=== PATIENT | female | born 1945 | race Caucasian/White ===

== ENCOUNTER 2017-02-19 05:45 | Inpatient (IN) | payer MEDICARE ==
[2017-02-19] VITALS (17 sets, daily range): BP systolic 108–147; BP diastolic 60–78; PULSE 62–96; RESP 10–20; O2SAT 95–100
[~2017-02-19] VITALS: Ht 162.6 cm; Wt 64.6 kg
[2017-02-19] MEDS: Lactated Ringer's 1,000 ML IV SCH ×5 (05:00→19:33)
[~2017-02-19 05:45] MED LIST: CALC-696 PO; DIPH25CA6 PO; ESTR10TA VG; RALO60TA PO
[2017-02-19] MEDS ORDERED: CeFAZolin Inj 2 GM in IV Premix 1 EACH IV ONE (06:00)
--- NOTE | 2017-02-19 06:34 | HP PRE OP ---
[address] [address] PREOPERATIVE HISTORY AND PHYSICAL PATIENT: MARLENY HAILE : 1945 MR#: [id number] ADMIT: 02/19/2017 JOB ID: [id number] IDENTIFICATION: The patient is a 71-year-old, G3, P3, AB0 woman. CHIEF COMPLAINT: Genitourinary prolapse plus right adnexal mass, for surgical intervention. HISTORY OF PRESENT ILLNESS: This patient is menopausal and uses Vagifem 10 mcg vaginally twice weekly, also Evista every day. She has been found to have genitourinary prolapse, with significant vaginal, as well as uterine drop, with associated sensation of difficulty emptying the bladder well, although no difficulty emptying the rectum. She does not leak urine. She has requested definitive surgical intervention, i.e. removal of the uterus along with ovaries and tubes, plus repair of weakened vaginal areas (see physical examination below), understanding that there is not a guarantee that prolapse would not recur in the future, nor is there a guarantee that urinary leakage would not develop. The patient has been found by ultrasound to have thickened and cystic appearing endometrium over time. She has undergone endometrial biopsies in 2016 and on January 03, 2017, and negative endometrium has been identified, most recently "inactive endometrial epithelium." She has not had vaginal bleeding. Finally, the patient has been followed in the past for adnexal mass (es) per Dr. Oneill, and more recently in my office. Recent studies include ultrasound on January 06, 2016, that demonstrated 3.8 x 3.8 x 3.5 cm solid, heterogeneous and moderately vascular right adnexal mass. MRI also in 2016 demonstrated right adnexal solid appearing, heterogeneous right-sided 4.3 x 4.1 x 4.1 cm mass. Followup formal ultrasound on December 04, 2016, demonstrated solid, heterogeneous, vascular right adnexal mass measuring 4.6 x 3.9 x 3.5 cm. CA-125 level has always been normal, most recently at 9.8 on December 29, 2016. I have encouraged the patient to undergo surgical intervention since early 2015 regarding the right adnexal mass to evaluate and remove it in that it could be a malignancy versus benign structure. It took patient some time to work toward surgery, yet ultimately, she requested surgery for diagnostic and therapeutic purposes regarding the right adnexal mass in conjunction with removal of the uterus in light of endometrial thickening with benign endometrial biopsies (see above), as well as vaginal repair work in conjunction with hysterectomy in the setting of the prolapse (also see above). The patient has understood that surgery for the mass does not necessarily guarantee removal of all cancer if cancer is present, and if cancer is discovered on permanent section per pathologist, there could be additional surgery and staging needed. The patient does understand the unknown elements, although she and I are hoping that this is a benign mass due to its longevity and little international exchange coordinator time, and normal CA-125 level. The patient will be admitted to [facility] on February 19, 2017, on which day she will undergo planned laparoscopic-assisted vaginal hysterectomy, bilateral salpingo-oophorectomy, anterior colporrhaphy, possible posterior colporrhaphy, and possible sacrospinous ligament suspension. Laparotomy is also a possibility depending on surgical findings. She has had all her questions answered, she realizes no guarantees may be stated or implied, and she has signed informed consent for surgery. This has been set up as an outpatient surgery, yet we will see what all procedures are needed and what is the duration of surgery and anesthesia, and how she tolerates these things before we make final determination as to whether she will be able to go home or will stay overnight. PHYSICAL EXAMINATION: On admission, Blood Pressure 120/88, height 63 and 3/4 inches. Weight 142 pounds. Neck: No thyromegaly. Lungs: Clear to auscultation and percussion. Heart: Regular in rate and rhythm. Abdomen: Nontender. No mass. No surgical scarring. Pelvic examination: Vulva, vagina and cervix no obvious epithelial abnormality. With Valsalva maneuver, there is noted 2 to 3+ cystocele, 2+ uterine prolapse, minimal rectocele. There is no obvious mass felt on bimanual examination. DIAGNOSTIC DATA: See history of present illness above for recent ultrasound and CA-125 level results. Also, endometrial biopsy result from January 03, 2017. Current preoperative lab work report, EKG and chest x-ray reports are not available at the time and place of this dictation, yet will be reviewed preoperatively. IMPRESSION: 1. Persistent heterogeneous/solid right adnexal mass up to 4.6 cm in size, followed over time, now with patient willing to undergo surgical excision for diagnostic and therapeutic purposes, understanding likelihood of neoplasm, cannot rule out possibly malignancy. Note negative free fluid on ultrasound, negative CA-125 level, and asymptomatic. 2. Genitourinary prolapse with some difficulty emptying bladder completely, no urinary leakage, no difficulty with defecation, for surgical intervention at patient's request. 3. Increased endometrial thickness with multicystic appearance, negative endometrial biopsies in 2016 and 2017. 4. Menopausal syndrome, using Vagifem 10 mcg twice weekly, note also Evista use daily. 5. Atrophic vaginitis, using local estrogen product (Vagifem) with benefit. 6. Osteoporosis with left hip T-score of -2.5, using Evista per Dr. Iam Hammer, also calcium/vitamin D product. 7. Small and asymptomatic intramural fibroid posteriorly (1.4 cm). 8. Reproductive history: Vaginal delivery x3. 9. Surgical history: See reproductive history, prior number. 10. History of borderline elevated hemoglobin A1c (5.7% in the past, current recheck result pending). 11. History of elevated total cholesterol and LDL, although HDL good, and subsequent total cholesterol and total cholesterol HDL ratios were normal. 12. History of thyroid nodules, followed per primary care provider. 13. Environmental allergies, using Benadryl allergy pills at patient report. 14. History of headache disorder. 15. Varicose veins. 16. Allergies: a. Meds: a. MINOCYCLINE. b. NEOMYCIN. b. Non-meds: "Carba Mix" which includes rubber, per patient report, also fragrances. 17. Family history of hypertension (father), diabetes (grandmother), heart disease (father), breast cancer (mother), colon cancer (grandmother), and melanoma of optic nerve (father). PLAN: This patient will be admitted to [facility] on February 19, 2017, on which day she will undergo surgery. JAZMIN
--- NOTE | 2017-02-19 06:59 | PCM.HPANE ---
Patient Data Surgeon Admitting Provider: Attending Provider:Rupesh Flores MD Primary Care Physician:Iam Hammer MD Other Provider:Erin Santiago Anesthesia Reason for Visit Pelvic Mass,Endometrial Hyperplasia,Uterovag Prola Ht/WT & BMI Height (Feet): 5 Height (Inches): 4.50 Weight (Kilograms): 65.4 Body Mass Index 24.00 Allergies Coded Allergies: neomycin (Verified Allergy, Unknown, 02/18/17) Uncoded Allergies: CARBA-MIX (Allergy, Unknown, 02/18/17) PARAGORIC (Allergy, Unknown, 02/18/17) Past Anesthesia History Anesthesia History: Denies:: Abnormal Airway, Anesthesia Reactions, Difficult Intubation, Fam Anesthesia Reaction Diabetes History Hx Diabetes?: No MRSA MRSA: No Medications Hypertension Medication: No Home Meds Incl Beta Blaine: No Reported Medications diphenhydrAMINE HCl (Benadryl)25 Mg Nvciusd28 Mg PO Q4 PRN allergy sx Ref 0 02/18/17 Calcium Citrate/Vitamin D2 (Kumar-Citrate Plus Vitamin D Tab)1 Each Tablet1 Each PO DAILY 02/18/17 Raloxifene (Evista)60 Mg Hnexfr23 Mg PO DAILY 02/18/17 History History of ENT Problems?: No HEENT History: Denies:: Abnormal Airway Cataracts Difficult Intubation Dysphagia Glaucoma Hearing Problem Sinus Problem TMJ Denture Type: None Teeth Condition: Within Normal Limits Hx of Heart Problems?: No Cardiovascular History: Denies:: AICD Abdominal Aortic Aneurism Atrial Fibrillation Edema Heart Murmur Hypertension Irregular Heartbeat Pacemaker Hx of Respiratory Problem?: No Respiratory History: Denies:: Asthma COPD Emphysema Oxygen Administration Pneumonia (remote hx of ) Tuberculosis Use of C-PAP Machine Use of Inhalers / NEBS Hx Neurologic Problems?: No Neurological History: Denies:: Alzheimer's Disease CVA Dementia Dizziness Headaches Multiple Sclerosis Parkinson's Disease Seizures TIA Hx of GI Problems?: No Hx of Problems?: No Genitourinary History: Denies:: Kidney Stones Urinary Tract Infection Female Hx: Denies:: Currently Problems with Breasts? (fibroid cysts) Skin History: Denies:: History Skin Disorders? Pressure Ulcers Hx Musculoskeletal Problems?: Yes Musculoskeletal History: Positive for:: Osteoarthritis (osteopenia, osteoporosis) Denies:: Fibromyalgia Joint Replacement Musculoskeletal Trauma Myasthenia Gravis Systemic Lupus Hx of Psycho/Social Problems?: No Psycho Social History: Denies:: Anxiety Hx Depression Hx Surgeries?: Yes (dental (tooth extraction)) Hx Any Other Health Problems?: Yes Other History: Denies:: Cancer Thyroid Disease (bx done- benign ) History Blood Transfusions: Positive for:: Accept Blood Products? Denies:: Blood Transfusions Hx Diabetes: No Hx Alcohol Use: NoHx Substance Use: NoHave You Smoked inLast 12 mo: No Stop/Bang P-Blood Pressure: treated: No B- Body Mass Index > 35 kg/m2: No A- Age over 50: Yes N- Neck Large Circumference: No G- Gender Male: No Risk Assessment Category Category 1A: Patient has history of documented sleep apnea, and HAS NOT received any narcotic, sedative or anesthesia administration during this stay. Category 1B: Patient has history of documented sleep apnea, and HAS received any narcotic , sedative or anesthesia administration during this stay Category 2: Patient has SUSPECTED Obstructive Sleep Apnea, and HAS received any narcotic , sedative or anesthesia administration during this stay. Category 3: Patient has SUSPECTED Obstructive Sleep Apnea and HAS NOT received narcotic, sedative or anesthesia administration during this stay. Category 4: Outpatient in Procedural Areas with known sleep apnea or who screen positive for High Risk via the STOP/BANG questionnaire. Exam Exam Vital Signs Vital Signs Date Time Temp Pulse Resp B/P Pulse Ox O2 Delivery O2 Flow Rate FiO2 02/19/17 06:15 36.0 82 18 147/76 99 Room Air General Appearance: Alert, Oriented X3, Cooperative, No Acute Distress HEENT/AIRWAY: MP 2 Lungs: Clear to Auscultation, Normal Air Movement Heart: Exam Unremarkable, Regular Rate/Rhythm, No Murmurs/Rubs/Gallops Meds/Labs/Diagnostics Admission Meds Current Medications Lactated Ringer's (Lr) 1,000 ml @ 120 mls/hr Q8H20M IV Last administered on t 05:49; Start 02/19/17 at 05:00; Stop 02/19/17 at 13:19 Plan Impression Patient chart reviewed, patient interviewed and anesthestic plan with risks, benefits, and alternatives discussed, and informed consent obtained. Bandar Cobb MD February 19, 2017 06:59
[2017-02-19] MEDS ORDERED: Lactated Ringer's 1,000 ML IV SCH (07:53)
[2017-02-19] MEDS ORDERED: Lactated Ringer's 500 ML IV PRN (07:53)
[2017-02-19] MEDS ORDERED: Dexamethasone 4 mg/mL Inj IVPUSH PRN (07:55)
[2017-02-19] MEDS ORDERED: HYDROmorphone 1 mg/mL Inj IVPUSH PRN (07:55)
[2017-02-19] MEDS ORDERED: MetoCLOpramide 5 mg/mL 2 mL Inj IVPUSH PRN (07:55)
[2017-02-19] MEDS ORDERED: Ondansetron 2 mg/mL 2 mL Inj IVPUSH PRN (07:55)
[2017-02-19] MEDS ORDERED: Phenylephrine 10,000 mCg/mL Inj IVPUSH PRN (07:55)
[2017-02-19] MEDS ORDERED: EPHEDrine Sulfate 50 mg/mL Inj IVPUSH PRN (07:55)
[2017-02-19] MEDS ORDERED: fentaNYL-PF 50 mCg/mL 2 mL Inj IVPUSH PRN (07:55)
[2017-02-19] MEDS ORDERED: Lidocaine 1%/Epi 1:100,000 30 mL MDV INFILTRATE ONE (08:10)
[2017-02-19] MEDS ORDERED: Lactated Ringer's 1,000 ML IV ONE (08:55)
[2017-02-19] MEDS ORDERED: Senna-Docusate 8.6-50 mg Tablet PO PRN (11:25)
[2017-02-19] MEDS ORDERED: Acetaminophen IV 1,000 MG in IV Premix 1 EACH IV PRN (11:25)
[2017-02-19] MEDS ORDERED: Ketorolac 15 mg/mL Inj IVPUSH PRN (11:25)
[2017-02-19] MEDS ORDERED: Alum-Mag Hydrox-Simeth 30 mL Suspension PO PRN (11:25)
[2017-02-19] MEDS ORDERED: HYDROcodone-APAP 5-325 mg Tablet PO PRN (11:25)
[2017-02-19] MEDS ORDERED: HYDROmorphone 0.5 mg/0.5 mL iSecure Syringe ONE (11:43)
[2017-02-19] MEDS: Ondansetron 2 mg/mL 2 mL Inj IVPUSH PRN ×3 (12:49→20:30)
[2017-02-19] MEDS: HYDROmorphone 1 mg/mL Inj IVPUSH PRN ×2 (15:42→23:30)
[2017-02-19] MEDS: MetoCLOpramide 5 mg/mL 2 mL Inj IVPUSH PRN (17:11)
[2017-02-19] MEDS ORDERED: Glycopyrrolate 0.2 MG/ML 1mL Inj ONE (17:19)
[2017-02-19] MEDS ORDERED: fentaNYL-PF 50 mCg/mL 2 mL Inj ONE (17:19)
[2017-02-19] MEDS ORDERED: Rocuronium 10 mg/mL 5 mL Inj ONE (17:19)
[2017-02-19] MEDS ORDERED: Dexamethasone 4 mg/mL Inj ONE (17:19)
[2017-02-19] MEDS ORDERED: Propofol 10,000 mCg/mL 20 mL Inj ONE (17:19)
[2017-02-19] MEDS ORDERED: Neostigmine 1 mg/mL 10 mL Inj ONE (17:19)
[2017-02-19] MEDS ORDERED: Ondansetron 2 mg/mL 2 mL Inj ONE (17:19)
--- NOTE | 2017-02-19 23:18 | OP ---
[address] [address] OPERATIVE REPORT PATIENT: MARLENY HAILE : 1945 MR#: [id number] ADMIT: 02/19/2017 JOB ID: [id number] DATE OF SURGERY: 02/19/2017 SURGEON: Rupesh Flores MD STEAM BLOCKER: Latricia Dela Cruz MD ANESTHESIA: General. PREOPERATIVE DIAGNOSIS(ES): 1. Genitourinary prolapse (particularly uterine prolapse and cystocele). 2. Increased endometrial thickness (negative endometrial biopsy). 3. Right adnexal area mass, suspect ovarian and neoplasm. POSTOPERATIVE DIAGNOSIS(ES): 1. Genitourinary prolapse (particularly uterine prolapse and cystocele). 2. Increased endometrial thickness (with negative endometrial biopsies). 3. Pelvic mass consistent with Meckel's diverticulum, solid palpably and per ultrasound and MRI. 4. Small uterine fibroid. 5. Small atrophic ovaries. 6. Adhesion disease involving adnexal structures on both sides, particularly the left binding the atrophic left ovary and tube densely to the pelvic sidewall. Note that the right ovary and tube were very highly located (cephalad), also suspect on the basis of adhesions. The adhesions/adherence patterns are consistent with old endometriosis that very likely was previously present, and more severe on the left side. PROCEDURES PERFORMED: 1. Laparoscopic-assisted vaginal hysterectomy. 2. Laparoscopic visualization of the pelvic mass consistent with Meckel's diverticulum with firm (and gradually expanding) characteristics, visualized by Dr. Parish Orta, general surgeon on-call with recommendation for later general surgical consultation, review of patient's symptoms, review of any recent colonoscopic studies, and to review all imaging before any decisions regarding whether or not to remove the mass, and how and when to approach it. Dr. Orta did not feel that in this surgical setting was the ideal time to approach the mass surgically. 3. Anterior colporrhaphy. FINDINGS AT SURGERY: Upon laparoscopic assessment, the uterus was small and atrophic, with small posterior left cornual area fibroid in subserosal location. The fimbriated end of each fallopian tube could be visualized and each ovary element seen was noted to be atrophic in appearance. There were adhesions involving the left ovary and fallopian tube densely to the left pelvic side wall over vasculature and potentially near the ureter. Some adhesions appeared to bind the right ovary in cephalad position, thus without the typical significant pelvic area mobility but rather tethered down. Adhesion changes as described were most consistent with old endometriosis of some past point. There also was noted the 4+ cm palpably firm mass in the cul-de-sac region, attached to/arising from what appeared to be a small bowel loop draped into the cul-de-sac, consistent with Meckel's diverticulum as diagnosed per Dr. Parish Orta (see above in intraoperative consultation viewed laparoscopically with apparent gradual increase in size, he shared that there can certainly be other tissues involved including pancreatic and other tissues in the Meckel's diverticulum. He specifically recommended leaving the mass alone at this time, and will consider having General Surgery review all historical and clinical and imaging data to then make a decision with the patient whether or not to remove the mass, although likely, and when and with what appropriate bowel prep. At close of laparoscopy, Meckel's diverticulum mass remained, and the ovaries and tubes remained (it was felt to be too great of a procedure to remove the ovaries and tubes via laparotomy in that they appeared to be benign, yet could not be removed laparoscopically). Proximal fallopian tube and proximal round ligament regions had been electrocoagulated and divided to account for the laparoscopic-assisted portion of the surgery. There was no internal bleeding occurring at any site. Upon vaginal exam, there was noted 2-3+ cervical/uterine prolapse with traction, and 2-3+ cystocele. There was only minimal rectocele. At procedure's close, the uterus had been removed, the anterior vaginal wall repaired/restored, and there was no significant residual prolapse anywhere, with good vaginal cuff support noted. It certainly is anticipated that the patient will do well during the postoperative time frame. The uterus with thickened endometrium has been removed with pathologist to examine all tissues. The prolapsing cervix/uterus thus has been resolved and the vaginal prolapse has also been surgically corrected for a significant, i.e. anterior vaginal wall. Vaginal support is good in all areas. Ovaries and tubes remained in the interest of not increasing the significance of the surgery and potential morbidity manyfold. Laparotomy was required to remove normal ovaries and tubes, in the setting of the adhesions, and Meckel's diverticulum mass will later be addressed by general surgeon per discussion above. PROCEDURE IN DETAIL: The patient was placed in supine position on the operating table. She was then very carefully repositioned into the low dorsal lithotomy position and prepped and draped in the usual sterile manner. Appropriate time-out was taken. The KATHLEEN cannula was secured in the cervix/uterus. Attention then directed to the abdomen where a short transverse subumbilical incision was made with a knife. This incision was carried through the skin, subcutaneous tissues and fascial layer, note small fascial defect. The peritoneal cavity was then carefully entered using blunt dissection and trocar sheath was secured in place. Laparoscope was introduced, CO2 and light sources connected, and the video camera attached and video laparoscopy was accomplished with findings as noted above. Note that 2nd puncture site was also made transversely at the hairline at the midline, with probe advanced to facilitate visualization of structures, as described under findings above. Note that general surgeon was consulted and he diagnosed Meckel's diverticulum and he recommended dealing with that at a later time, see discussion above under findings. Decision was also made to leave the ovaries and tubes in place as they could not be safely removed laparoscopically, particularly the left one which was so densely adherent to the sidewall. It was not felt that laparotomy would be an appropriate procedure for normal ovaries and tubes (no sign of cancer) in this 71-year-old patient who had her goal otherwise met with removal of the prolapsing uterus and repair of the anterior vaginal wall and cystocele), and removal of the increased endometrial thickness for diagnostic and therapeutic purposes with the determination of what is the pelvic mass. Appropriate pictures were taken and then laparoscope and second laparoscope and both trocar sheath were removed and the subumbilical fascial incision was closed with 0-Vicryl suture in pursestring fashion, closing the defect, and deep skin incision was closed with interrupted vertical mattress stitches in subcuticular position with good approximation of skin edges, and then local anesthesia with epinephrine was then injected along each incision, and then benzoin and then half-inch Steri-Strips were applied. Bandages were placed then across the Steri-Strips. Attention was then directed to the vaginal region where weighted speculum was placed, KATHLEEN cannula was removed the cervix and uterus, and lidocaine with epinephrine solution was injected completely around the cervix at the cervicovaginal mucosal junction. An incision was then made at this same site circumferentially and appropriate planes were developed anteriorly and posteriorly. Uterosacral ligaments were then clamped, divided and suture ligated using 0-Vicryl suture and cardinal ligaments were then clamped, divided and suture ligated using 0-Vicryl suture. Uterine vasculature was then clamped, divided and suture ligated using 0-Vicryl suture, with these final bites completing the separation of the uterus, and all of its patching sites. Uterus and cervix were thus removed and final pedicles were suture ligated using 0-Vicryl suture and pedicle lines were inspected and there were no bleeding sites. The uterosacral ligament pedicle ties were then drawn together across the midline and ligated, followed by closure of the mid and posterior aspects of the vaginal cuff using 0-Vicryl suture [id number] stitches in vyoh-ax-zzlo fashion. It was felt that there was perineal support, and minimal rectocele, and that vaginal cuff support was very adequate, having now removed the uterus and then supported the cuff with ligament pedicle tie ligatures and then [id number] cuff closure. It is also felt that further cuff support will be accomplished by the achievement of the anterior colporrhaphy, and thus it was not felt that posterior colporrhaphy or sacrospinous ligament suspension would be needed based on these findings. From the vaginal cuff then along the anterior vaginal wall, lidocaine with epinephrine solution was injected at the midline and then an incision made at this same site all the way up to the urethrovesical junction. Appropriate planes were then developed between the bladder and the vaginal wall, using blunt and sharp dissection. There was no concerning bleeding, no worries regarding integrity of the bladder wall, and appropriate planes were well-developed. There seemed to be some adherence towards the left side, although no history of surgery in the area. During this process, Yañez catheter was placed and balloon assessed to facilitate in the dissection process. The endopelvic fascia was then drawn together across the midline using horizontal mattress stitches in interrupted fashion using 2-0 Vicryl suture. The cystocele was well reduced via this process and excess vaginal mucosa was then removed and the anterior vaginal wall was then closed in a running manner using 2-0 Vicryl suture with complete hemostasis achieved and excellent support achieved, stitching all the way down to the vaginal cuff. Urine was noted to be clear yellow at this point as well as throughout the case, and there was no obvious vaginal bleeding occurring. Decision was made, however, to place vaginal packing and this was repaired with Premarin cream and then placed. Procedures were thus complete. Patient was returned to the supine position and awakened and taken to the recovery room. ESTIMATED BLOOD LOSS: 20 cc. COMPLICATIONS: None. PROGNOSIS: Good for surgical recovery. PLAN: Note that I have spoken with Dr. Gottlieb, general surgeon at [facility], regarding this patient and her Meckel's diverticulum. I will refer patient to him and I have given him a copy of the intraoperative picture for his use as he manages the patient.
[2017-02-20 00:41] VITALS: BP 117/72; PULSE 109; RESP 20; O2SAT 98
[2017-02-20] MEDS: Lactated Ringer's 1,000 ML IV SCH (03:31)
[2017-02-20 05:18] VITALS: BP 121/73; PULSE 101; RESP 20; O2SAT 98
[2017-02-20] MEDS: HYDROmorphone 1 mg/mL Inj IVPUSH PRN (06:00)
[2017-02-20] MEDS: Ondansetron 2 mg/mL 2 mL Inj IVPUSH PRN (06:01)
[2017-02-20] MEDS: MetoCLOpramide 5 mg/mL 2 mL Inj IVPUSH PRN (07:29)
[2017-02-20 07:51] LABS: BASOPHILS % (AUTO) 0.1 % (0-3); EOSINOPHILS % (AUTO) 0 % (0-5); MONOCYTES % (AUTO) 7.9 % (4-12); Mean Corpuscular Hemoglobin 29.8 pg (27.0-35.0); NEUTROPHILS % (AUTO) 82.7 % (40-74); Platelet Count 277 bil/L (150-400)
--- NOTE | 2017-02-20 08:22 | PCM.ANEP1 ---
Post Anesthesia Phase 1 PACU Phase 1 Assessment Vital Signs Vital Signs Date Time Temp Pulse Resp B/P Pulse Ox O2 Delivery O2 Flow Rate FiO2 02/20/17 05:18 36.8 101 20 121/73 98 Room Air 02/20/17 00:41 36.7 109 20 117/72 98 Room Air Anesthetic Administered: GA Level of Alertness: Awake, talking KAUFMAN's with Equal Strength: Yes Pain: Yes Pain Scale Score: 4 Nausea or Vomiting: No Oxygen Delivery: Simple Mask Dermatome Level: Full Sensation Complications: No Follow up Care: No Patient Instructions Provided: Yes Bandar Cobb MD February 20, 2017 08:21
[2017-02-20 08:45] LABS: APPEARANCE,URINE HAZY (CLEAR,HAZY); COLOR,URINE YELLOW (YELLOW); OCCULT BLOOD,URINE MODERATE (NEGATIVE); UROBILINOGEN,URINE NORMAL (NORMAL)
[2017-02-20 10:00] VITALS: BP 125/73; PULSE 77; RESP 18; O2SAT 96
[2017-02-20] MEDS ORDERED: Promethazine Inj 25 MG in Dextrose 5% 50 ML IV PRN (10:25)
--- NOTE | 2017-02-20 16:54 | PCM.DIGYN ---
Surgical Discharge Instruction Dates of Hospitalization Date of Hospital Admission February 19, 2017 at 12:10 Providers Admitting Physician: Rupesh Flores MD Primary Care Physician: Iam Hammer MD Attending Physician: Rupesh Flores MD Diagnosis at Time of Discharge Problems: (1) Uterovaginal prolapse, complete Status: Acute ICD Code: N81.3 (2) Thickened endometrium Status: Acute ICD Code: R93.8 (3) Pelvic mass Status: Acute ICD Code: R19.00 Diet Discharge Diet: No restrictions Activity Discharge Activity-General: No lifting >10 pounds for 4-6 weeks, Other (Pelvic Rest for 6 weeks.) Dressing and Incisional Care Dressing Care: Allow Steri Stripes to fall off Hygiene: May shower, DO NOT soak incision under water Follow Up Plan Follow-up appointment: Weeks (Follow up in 2 and in 6 weeks for postoperative checkups with Dr. Flores.) Call your provider for: Fever, Shortness of breath, Heavy vaginal bleeding Attending Statement (1)PAIN MEDICATION: Patient has not felt that she needs oral narcotics for pain management postop. She may thus use: (1)Extra-strength Tylenol and/or (2) 400 mg Ibuprofen every 4 hours prn pain, (or 600 mg Ibuprofen every 6 hours prn pain). (2)SCOPOLAMINE TRANSDERMAL PATCH: Patient to remove after 3 days. (3)VAGIFEM: May resume after 6 weeks postop. Rupesh Flores MD February 20, 2017 16:54
--- NOTE | 2017-02-21 08:45 | DIS ---
[address] [address] DISCHARGE SUMMARY PATIENT: MARLENY HAILE : 1945 MR#: [id number] ADMIT: 02/19/2017 JOB ID: [id number] DIS: 02/20/2017 DISCHARGE DIAGNOSES: 1. Genitourinary prolapse. 2. Increased endometrial thickness. 3. Meckel's diverticulum. 4. Adnexal adhesions consistent with past endometriosis. PROCEDURES PERFORMED DURING HOSPITALIZATION: 1. Laparoscopic assisted vaginal hysterectomy. 2. Laparoscopic assessment of Meckel's diverticulum with consultation with general surgeon intraoperatively. 3. Anterior colporrhaphy. HOSPITAL COURSE: The patient admitted to [facility] on February 19, 2017, on which day she underwent surgical procedures as described. During the postoperative timeframe, patient had significant nausea that ultimately resolved with Phenergan after other antiemetics had failed plus with scopolamine patch. The patient was unable to take in oral fluids. She was able to void, ambulate and pain management was reasonable without narcotics by the first postoperative day. She requested to be discharged to home on the first postoperative day, i.e. on February 20, 2017, and her request was granted. Note: Postoperative hemoglobin at 11.9. DISCHARGE PROGRAM: The patient will call p.r.n., and otherwise she will follow up at two and at six weeks for postoperative checkups at [facility]. She will observe pelvic rest and not do any heavy lifting for six weeks. DISCHARGE MEDICATIONS: Include: 1. Ibuprofen 400 mg up to every 4 hours at home or 600 mg up to every 6 hours at home. She has supply. 2. She also may use extra-strength Tylenol, also having supply. 3. She will hold off on Vagifem use for six weeks postop. 4. She will keep a scopolamine patch on for three full days.
[2017-03-15] MEDS ORDERED: ESTR10TA VAGINAL (16:43)
== END 2017-02-20 17:20 | disposition home or self-care (01) | DRG 743 ==
LOC: SAS 05:45 → OSC 12:10
PROVIDERS: ADMIT Obstetrics & Gynecology; ATTEND Obstetrics & Gynecology
PROC: 0UT9FZZ Resection of Uterus, Via Natural or Artificial Opening With Percutaneous Endoscopic Assistance (ICD-10-PCS; principal; 2017-02-19 07:30)
PROC: 0JQC0ZZ Repair Pelvic Region Subcutaneous Tissue and Fascia, Open Approach (ICD-10-PCS; 2017-02-19 07:30)
DX: N81.2 Incomplete uterovaginal prolapse (principal); R93.8 Abnormal findings on diagnostic imaging of other specified body structures; Q43.0 Meckel's diverticulum (displaced) (hypertrophic); D25.9 Leiomyoma of uterus, unspecified; N83.312 Acquired atrophy of left ovary; N83.311 Acquired atrophy of right ovary; N95.2 Postmenopausal atrophic vaginitis; N73.6 Female pelvic peritoneal adhesions (postinfective)

== ENCOUNTER 2017-03-20 14:11 | Day surgery (SDC) | payer MEDICARE ==
[~2017-03-20] VITALS: Ht 162.6 cm; Wt 62.0 kg
[~2017-03-20 14:11] MED LIST changes: +0.9% Sodium Chloride 1,000 ML IV SCH; +ESTR10TA VAGINAL; -ESTR10TA VG; +Sodium Biphos-Phos 133 mL Enema RECTAL PRN; +Sodium Chloride LOK Flush 10 mL Syringe IV PRN; +fentaNYL-PF 50 mCg/mL 2 mL Inj IVPUSH PRN
[2017-03-20 14:32] VITALS: BP 142/87; PULSE 94; RESP 16; O2SAT 100
[2017-03-20 15:53] VITALS: BP 107/66; PULSE 86; RESP 16; O2SAT 97
[2017-03-20 16:03] VITALS: BP 101/60; PULSE 85; RESP 14; O2SAT 99
[2017-03-20 16:05] VITALS: BP 111/72; PULSE 88; RESP 16; O2SAT 98
--- NOTE | 2017-03-20 16:22 | ENDO ---
[address] [address] ENDOSCOPY PROCEDURE PATIENT: MARLENY HAILE : 1945 MR#: [id number] ADMIT: 03/20/2017 JOB ID: [id number] DATE: 03/20/2017 PRE-PROCEDURE DIAGNOSIS: Small bowel mass. POST-PROCEDURE DIAGNOSIS: Small bowel mass. PROCEDURE: Colonoscopy with terminal ileoscopy. ENDOSCOPIST: Dr. Chente Gottlieb. MEDICATIONS: 1. Versed 8 mg. 2. Fentanyl 175 mcg. INDICATIONS: The patient is a 71-year-old woman who recently underwent a laparoscopic assisted vaginal hysterectomy for what was thought to be a 4.3 cm adnexal mass. At the time of her surgery, the mass was actually appreciated to be arising from her bowel. It was not totally clear if this was small intestine or colon. She had some small uterine fibroids and vaginal hysterectomy was performed. Her last colonoscopy was in 2012. Plans were then made to proceed with surgical resection of the intestinal mass, but colonoscopy was recommended to help determine if the mass was arising from the colon or from the small bowel. After discussion of risks and benefits, informed consent was obtained. FINDINGS: There was no mucosal lesion in the colon, rectum, and also within the distal approximately 20 cm of terminal ileum. DESCRIPTION OF PROCEDURE: Procedural sedation was achieved. The patient was connected to hemodynamic monitoring, pulse oximetry, capnography. After digital rectal examination, the PCF H 190 colonoscope was inserted and passed under visualization. The cecum was visualized with photo documentation of the appendiceal orifice and ileocecal valve. The terminal ileum was then intubated and the scope was advanced for approximately 20-30 cm. No terminal ileal mucosal abnormalities were identified. There was no evidence of external mass lesion. The scope was then withdrawn slowly. Retroflexion was performed in the rectum revealing some small internal hemorrhoids. Again in the distal colon and rectum, there was no evidence of mucosal mass lesion, and no suggestion of an external exophytic mass that could be appreciated endoscopically. The scope was withdrawn and the procedure terminated. She tolerated the entire procedure well. RECOMMENDATIONS: We will plan to proceed with laparoscopic resection of the mass, which at this point I presume arises from the small bowel. She will followup in [facility] to finalize surgical plans.
== END 2017-03-20 23:59 | disposition home or self-care (01) ==
LOC: END 14:11
PROVIDERS: ATTEND Student in an Organized Health Care Education/Training Program
DX: K63.89 Other specified diseases of intestine (principal); Z80.0 Family history of malignant neoplasm of digestive organs
CPT/HCPCS: 45378; 99153; G0500; J7030

== ENCOUNTER 2017-04-09 05:50 | Inpatient (IN) | payer MEDICARE ==
[2017-04-09] VITALS (14 sets, daily range): BP systolic 122–149; BP diastolic 65–90; PULSE 71–114; RESP 12–24; O2SAT 96–100
[~2017-04-09] VITALS: Ht 162.6 cm; Wt 64.1 kg
[~2017-04-09 05:50] MED LIST changes: -0.9% Sodium Chloride 1,000 ML IV SCH; -ESTR10TA VAGINAL; -Sodium Biphos-Phos 133 mL Enema RECTAL PRN; -Sodium Chloride LOK Flush 10 mL Syringe IV PRN; -fentaNYL-PF 50 mCg/mL 2 mL Inj IVPUSH PRN
[2017-04-09] MEDS ORDERED: Cefotetan Inj 2,000 MG in IV Premix 1 EACH IV ONE (06:00)
[2017-04-09] MEDS ORDERED: Bupivacaine Liposome 1.3% 20 mL Inj INFILTRATE ONE ×2 (06:00→09:00)
[2017-04-09] MEDS: Lactated Ringer's 1,000 ML IV SCH ×4 (06:01→11:02)
[2017-04-09] MEDS ORDERED: Phenylephrine/NS 100 mCg/mL 10 mL Syringe IVPUSH ONE (06:04)
[2017-04-09] MEDS ORDERED: Rocuronium 10 mg/mL 5 mL Inj ONE (06:04)
[2017-04-09] MEDS ORDERED: MetoCLOpramide 5 mg/mL 2 mL Inj ONE (06:04)
[2017-04-09] MEDS ORDERED: Dexamethasone 4 mg/mL Inj ONE (06:04)
[2017-04-09] MEDS ORDERED: Glycopyrrolate 0.2 MG/ML 1mL Inj ONE (06:04)
[2017-04-09] MEDS ORDERED: Neostigmine 1 mg/mL 10 mL Inj ONE (06:04)
[2017-04-09] MEDS ORDERED: fentaNYL-PF 50 mCg/mL 2 mL Inj ONE (06:04)
[2017-04-09] MEDS ORDERED: Ondansetron 2 mg/mL 2 mL Inj ONE (06:04)
[2017-04-09] MEDS ORDERED: Propofol 10,000 mCg/mL 20 mL Inj ONE (06:04)
--- NOTE | 2017-04-09 07:12 | PCM.HPANE ---
Patient Data Date of Service: Apr 09, 2017 Surgeon Admitting Provider: Attending Provider:Chente Gottlieb MD Primary Care Physician:Iam Hammer MD Other Provider:Erin Santiago Anesthesia Reason for Visit Small Bowel Mass Ht/WT & BMI Height (Feet): 5 Height (Inches): 4 Weight (Kilograms): 63.3 Body Mass Index 23.00 Allergies Coded Allergies: neomycin (Verified Allergy, Unknown, 03/20/17) paregoric (Unverified Allergy, Unknown, 03/20/17) ENTERED FROM UNCODED ALLERGIES Uncoded Allergies: CARBA-MIX (Allergy, Unknown, 02/18/17) PARAGORIC (Allergy, Unknown, 02/18/17) Past Anesthesia History Anesthesia History: Denies:: Abnormal Airway, Anesthesia Reactions (nausea- after both LAVH and colonoscopy), Difficult Intubation, Fam Anesthesia Reaction , Fam Malignant Hypertherm, Malignant Hyperthermia Diabetes History Hx Diabetes?: No MRSA MRSA: No Medications Hypertension Medication: No Home Meds Incl Beta Blaine: No Reported Medications diphenhydrAMINE HCl (Benadryl)25 Mg [id number] Mg PO Q4 PRN allergy sx Ref 0 02/18/17 Calcium Citrate/Vitamin D2 (Kumar-Citrate Plus Vitamin D Tab)1 Each Tablet1 Each PO DAILY 02/18/17 Raloxifene (Evista)60 Mg [id number] Mg PO DAILY 02/18/17 Discontinued Reported Medications Estradiol (Vagifem)10 Mcg [id number] Mcg VAGINAL 03/15/17 History History of ENT Problems?: No HEENT History: Denies:: Abnormal Airway Cataracts Difficult Intubation Dysphagia Hearing Problem Sinus Problem TMJ Denture Type: None Teeth Condition: Within Normal Limits Hx of Heart Problems?: No Cardiovascular History: Denies:: AICD Abdominal Aortic Aneurism Atrial Fibrillation Edema Heart Murmur Hypertension Irregular Heartbeat Pacemaker Valvular Heart Disease Hx of Respiratory Problem?: No Respiratory History: Denies:: Asthma COPD Emphysema Oxygen Administration Pneumonia (remote hx of ) Tuberculosis Use of C-PAP Machine Hx Neurologic Problems?: No Neurological History: Denies:: Alzheimer's Disease CVA Dementia Dizziness Headaches Multiple Sclerosis Parkinson's Disease Seizures Hx of GI Problems?: Yes Other GI Pertinent History: mass small bowel/colon current admission problem Hx of Problems?: No Genitourinary History: Denies:: Kidney Stones Urinary Tract Infection HX of Peritoneal Dialysis: No Female Hx: Denies:: Currently Problems with Breasts? (fibroid cysts) Skin History: Denies:: History Skin Disorders? Pressure Ulcers Hx Musculoskeletal Problems?: Yes Musculoskeletal History: Denies:: Joint Replacement Musculoskeletal Trauma Systemic Lupus Hx of Psycho/Social Problems?: No Psycho Social History: Denies:: Anxiety Hx Depression Hx Surgeries?: Yes (dental (tooth extraction), LAVH) Hx Any Other Health Problems?: Yes Other History: Denies:: Cancer Thyroid Disease (bx done- benign ) History Blood Transfusions: Denies:: Blood Transfusions Hx Diabetes: No Hx Alcohol Use: NoHx Substance Use: No Smoking Status: Never Smoker Have You Smoked inLast 12 mo: No Stop/Bang Treated for Sleep Apnea?: No Do You Have a CPAP Machine?: No S-Snoring: Do You Snore Loudly: No T-Tired: feel tired, fatigued: No O-Obsered: Observed not breath: No P-Blood Pressure: treated: No B- Body Mass Index > 35 kg/m2: No A- Age over 50: Yes N- Neck Large Circumference: No G- Gender Male: No ABIGAIL Total Score: 1 ABIGAIL Risk Assessment: Low Risk, <3 Yes Risk Assessment Category Category 1A: Patient has history of documented sleep apnea, and HAS NOT received any narcotic, sedative or anesthesia administration during this stay. Category 1B: Patient has history of documented sleep apnea, and HAS received any narcotic , sedative or anesthesia administration during this stay Category 2: Patient has SUSPECTED Obstructive Sleep Apnea, and HAS received any narcotic , sedative or anesthesia administration during this stay. Category 3: Patient has SUSPECTED Obstructive Sleep Apnea and HAS NOT received narcotic, sedative or anesthesia administration during this stay. Category 4: Outpatient in Procedural Areas with known sleep apnea or who screen positive for High Risk via the STOP/BANG questionnaire. Exam Exam Vital Signs Vital Signs Date Time Temp Pulse Resp B/P Pulse Ox O2 Delivery O2 Flow Rate FiO2 04/09/17 06:14 36.2 80 16 144/81 98 Room Air General Appearance: Alert, Oriented X3, Cooperative HEENT/AIRWAY: MP 1, Neck Movement (Full), Mouth Opening (Wide) Lungs: Clear to Auscultation, Normal Air Movement Heart: Regular Rate/Rhythm, Normal S1, Normal S2 Meds/Labs/Diagnostics Admission Meds Current Medications Lactated Ringer's (Lr) 1,000 ml @ 120 mls/hr Q8H20M IV Last administered on t 06:01; Start 04/09/17 at 05:00; Stop 04/09/17 at 13:19 Plan Impression Patient chart reviewed, patient interviewed and anesthestic plan with risks, benefits, and alternatives discussed, and informed consent obtained. NPO per Anesth. Guidelines: Yes ASA Physical Status: ASA2 Mod Systemic Disease Anesthetic Plan: GA Bene/Risks/Altern/Consents: Yes HP Complete Prior to Induction: Yes Fletcher Phillips MD Apr 09, 2017 07:02
[2017-04-09] MEDS ORDERED: Lactated Ringer's 1,000 ML IV SCH (07:13)
[2017-04-09] MEDS ORDERED: Lactated Ringer's 500 ML IV PRN (07:13)
[2017-04-09] MEDS ORDERED: Atropine 0.4 mg/mL Inj IVPUSH PRN (07:15)
[2017-04-09] MEDS ORDERED: EPHEDrine Sulfate 50 mg/mL Inj IVPUSH PRN (07:15)
[2017-04-09] MEDS ORDERED: Ondansetron 2 mg/mL 2 mL Inj IVPUSH PRN ×2 (07:15→09:25)
[2017-04-09] MEDS ORDERED: Labetalol 5 mg/mL 4 mL Inj IV PRN (07:15)
[2017-04-09] MEDS ORDERED: hydrALAZINE 20 mg/mL Inj IVPUSH PRN (07:15)
[2017-04-09] MEDS ORDERED: MetoCLOpramide 5 mg/mL 2 mL Inj IVPUSH PRN ×2 (07:15→09:25)
[2017-04-09] MEDS ORDERED: Dexamethasone 4 mg/mL Inj IVPUSH PRN (07:15)
[2017-04-09] MEDS ORDERED: Phenylephrine 10,000 mCg/mL Inj IVPUSH PRN (07:15)
[2017-04-09] MEDS ORDERED: HYDROmorphone 1 mg/mL Inj IVPUSH PRN (07:15)
[2017-04-09] MEDS ORDERED: Bupivacaine-MPF 0.5% W/EPI 30 mL Inj INFILTRATE ONE (08:22)
--- NOTE | 2017-04-09 09:33 | PCM.SURGOP ---
Surgical Operative Report Date of Service: Apr 09, 2017 Pre Operative Diagnosis Small bowel mass Post Operative Diagnosis Same Procedure: Laparoscopic small bowel resection with anastomosis Surgeon and Child Welfare Assistant: Surgeon: Chente Gottlieb MD Assistants: Karlo Tinsley PA-C Indication for Procedure 71-year-old woman who recently underwent a workup and ultimate operation by Dr. Flores for a presumed adnexal mass. She had MRI of the pelvis as well as transvaginal ultrasound, both of which suggested a 4.3 cm heterogeneous solid mass, presumptively arising from the right adnexa. She underwent a laparoscopic hysterectomy, and she has some small fibroids, but actually the mass was arising from the bowel. She recovered from that operation. She had colonoscopy, which did not show any endoluminal lesion. After discussion of risks and benefits, she agreed to proceed with laparoscopic all resection. She was treated with the preoperative [employer] nutritional program. She underwent a mechanical and antibiotic bowel preparation. Findings: There was an exophytic lesion arising from the ileum measuring 4.0 x 5.0 cm. There did not appear to be any narrowing of the ileal lumen. There was no adenopathy. The liver was normal. There were no other abnormalities appreciated. Procedure Details After smooth induction of general endotracheal anesthesia, she was placed in the low lithotomy position. A Yañez catheter was placed. She was prepped and draped in wide sterile fashion. A procedural pause was performed according to the SCOAP checklist, and all were found to be in agreement. Her prior curvilinear infraumbilical incision was reopened sharply. Dissection was carried through the subcutaneous tissue until the midline fascia was incised vertically. The peritoneal cavity was entered and a 5 mm trocar was placed, and pneumoperitoneum was established. 5 mm ports were placed in the left abdomen at the level of the umbilicus, and in the right lower quadrant. She was placed with the head down, and the small bowel was retracted out of the pelvis. The exophytic small bowel lesion was visualized in the ileum. It was not adherent to any other structures, and was freely mobile. There was no lymphadenopathy. The liver was inspected, which looked normal. There was no peritoneal nodularity. No other abnormalities were appreciated. A 5 cm Pfannenstiel incision was made. A wound protector was placed. The small bowel lesion was brought out through the Pfannenstiel incision. Small bowel resection was performed in a limited fashion. Lymphadenectomy was not performed , because the lesion appeared benign, most likely consistent with a Meckel's diverticulum with ectopic tissue. The ileum was divided proximal and distal to the lesion by distance of about 5 cm on each end with firings of the TYSON 75 mm stapler with blue loads. The limited mesenteric dissection was performed with clamps and 2-0 silk ties. The lesion was not oriented. There did not appear to be any luminal narrowing. Ex vivo, the exophytic lesion was firm, solid, possibly consistent with a Meckel's diverticulum with ectopic tissue. The lesion measured 4.0 x 5.0 cm. Side to side stapled anastomosis was performed using another firing of the TYSON 75 mm stapler with a blue load, and the enterotomy was closed with a firing of the TA 30 mm stapler with blue load. The staple lines were oversewn, and a reinforcing suture was placed at the crotch of the anastomosis with 3-0 silk Lembert sutures. The anastomosis was widely patent, easily allowing milking of gas and enteric fluid across the anastomosis, with no leakage. The anastomosis was returned to the abdominal cavity. Gloves and instruments were changed. The wound protector was removed. The Pfannenstiel was closed with running looped 0 PDS sutures 2. Laparoscopy was performed again, revealing the anastomosis in good position with no twisting, no bleeding, and an intact closure of the fascia of the Pfannenstiel incision. The remaining trochars were removed under visualization , and pneumoperitoneum was released. The fascia of the umbilical port site was closed with an 0 Vicryl simple suture. Liposomal bupivacaine was instilled into the fascia and the subcutaneous tissues. The skin incisions were closed with running 4-0 Monocryl subcuticular stitches. Steri-Strips and sterile dressings were applied. The Yañez catheter was removed. At the end of the case all needle and sponge counts were correct 2. The patient was awakened from anesthesia without difficulty, and taken to the recovery room in satisfactory condition, having tolerated the procedure well. Complications There were no periprocedural complications identified. Surgical Specimen Removed: Yes Specimen sent to Pathology: Yes Surgical Specimen description: Small bowel lesion. Anesthetic Plan: GA Grafts, Implants: None Output, Estimated Blood Loss: 10 Blood Administration during lobo: No Drains: None Catheters: Urethral 2 Way Yañez copies to: Rupesh Flores MD; Iam Hammer MD, Joshua D MD Apr 09, 2017 09:33
--- NOTE | 2017-04-09 09:53 | PCM.ANEP1 ---
Post Anesthesia PACU Phase 1 Assessment Date of Service: Apr 09, 2017 Vital Signs Vital Signs Date Time Temp Pulse Resp B/P Pulse Ox O2 Delivery O2 Flow Rate FiO2 04/09/17 09:40 80 15 129/78 100 Simple Mask 10 04/09/17 09:32 36.3 78 16 135/79 100 Simple Mask 10 04/09/17 06:14 36.2 80 16 144/81 98 Room Air Anesthetic Administered: GA Level of Alertness: Awake, talking KAUFMAN's with Equal Strength: Yes Pain: No Nausea or Vomiting: No CV Function & Hydration Stable: Yes Airway Device: Oxygen Delivery: Simple Mask Lungs: Normal Air Movement PACU Phase 2 Assessment Complications: No Follow up Care: N/A Patient Instructions Provided: N/A Fletcher Phillips MD Apr 09, 2017 09:53
[2017-04-09] MEDS: fentaNYL-PF 50 mCg/mL 2 mL Inj IVPUSH PRN ×3 (10:15→10:32)
[2017-04-09] MEDS: Dextrose 5% Lactated Ringer's 1,000 ML IV SCH ×2 (11:45→21:51)
[2017-04-09] MEDS ORDERED: diphenhydrAMINE 25 mg Capsule PO PRN (11:45)
[2017-04-09 13:25] LABS: APPEARANCE,URINE HAZY (CLEAR,HAZY); COLOR,URINE YELLOW (YELLOW); OCCULT BLOOD,URINE NEGATIVE (NEGATIVE); UROBILINOGEN,URINE NORMAL (NORMAL)
[2017-04-09] MEDS: Polyethylene Glycol (PEG) 17 Gm Powder PO SCH (13:29)
[2017-04-09] MEDS ORDERED: 0.9% Sodium Chloride 100 ML ONE (13:55)
[2017-04-09] MEDS: Acetaminophen IV 1,000 MG in IV Premix 1 EACH IV SCH ×2 (14:08→20:54)
[2017-04-09] MEDS: Heparin 5,000 Unit/mL Inj SUBQ SCH ×2 (17:47→23:59)
--- NOTE | 2017-04-09 18:07 | NUR ---
Post op Pt arrived on bed at 1050 to unit, sleepy but oriented x 3. Pt states pain 3/10, but declines meds. Three lap sites with band-aids CDI and lower medial abdomen dressing CDI. IV in left arm connected to fluid, SCD's in place, 10L mask in place for 6 hours then titrate down to 2L NC. Pt oriented to room and call light, given water and made comfortable. Bed in low, call light in reach, continue q1 hour monitoring.
--- NOTE | 2017-04-09 18:09 | NUR ---
HR/Reflux Pt's HR was in low 100's, have been monitoring, but recently increased to 110-120. paged. Thinks it is related to pain. IV tylenol and oxy 5mg already given. Continue to monitor per MD and page bone crusher surgeon if continues. Pt feeling like she is having reflux, verbal orders obtained for Maalox.
[2017-04-09] MEDS ORDERED: Alum-Mag Hydrox-Simeth 30 mL Suspension PO PRN (18:40)
[2017-04-10 00:21] VITALS: BP 116/69; PULSE 111; RESP 18; O2SAT 95
[2017-04-10] MEDS: Acetaminophen IV 1,000 MG in IV Premix 1 EACH IV SCH ×4 (02:45→23:17)
--- NOTE | 2017-04-10 04:02 | NUR ---
Pain/HR Pt Hr fluctuating 90-100's. Pt is asymptomatic. Pt pain is controlled with routine IV tylenol and oxycodone 10mg at every 4-5hr intervals. Rates pain 4/10 and is tolerable. Pt has been up to BR independently with steady gait. tolerating full liquids at this time with good fluid intake. BT + x4 active, Pt has feeling of passing gas soon. Call light in reach. care continues
--- NOTE | 2017-04-10 05:01 | NUR ---
Activity Pt up ambulaing halls with SBA and has a steady gait. BT +x4 hyperactive, Pt tolerating full liquids.
[2017-04-10 05:14] VITALS: BP 122/75; PULSE 95; RESP 18; O2SAT 96
[2017-04-10 06:18] LABS: BASOPHILS % (AUTO) 0.1 % (0-3); EOSINOPHILS % (AUTO) 0.1 % (0-5); MONOCYTES % (AUTO) 10.5 % (4-12); Mean Corpuscular Hemoglobin 29.4 pg (27.0-35.0); Mean Corpuscular Volume 88.7 fL (81-100); NEUTROPHILS % (AUTO) 68.4 % (40-74); Platelet Count 378 bil/L (150-400)
--- NOTE | 2017-04-10 07:43 | PROG NOTE ---
[address] [address] PROGRESS NOTE PATIENT: MARLENY HAILE : 1945 MR#: [id number] ADMIT: 04/09/2017 JOB ID: [id number] DATE: 04/10/2017 SUBJECTIVE: The patient is seen in followup. She feels a little bit better today. She has no nausea. Her pain is rated at a 4/10. She did take 10 mg of oxycodone overnight. She is not passing any flatus but does feel some rumbling. OBJECTIVE: Temperature 36.7, pulse 95, blood pressure 122/75, saturation 96% on 2 liters. General: She is sitting up in bed, in no acute distress. Chest is clear. Heart: Regular rate and rhythm. No murmurs. Abdomen is mildly distended, but soft. Bowel tones are present. Her incisions are clean with no erythema. LABORATORIES: White count is 12.0, hematocrit 40.2, platelets 378. Creatinine 0.71, glucose 117. ASSESSMENT/PLAN: A 71-year-old woman, postoperative day one, status post laparoscopic small bowel resection for an ileal mass, possible Meckel's diverticulum with ectopic tissue. She is doing well clinically. Recommend continuing a full liquid diet until she has some return of bowel function. She should ambulate t.i.d.
[2017-04-10] MEDS: Dextrose 5% Lactated Ringer's 1,000 ML IV SCH ×2 (10:21→22:51)
[2017-04-10] MEDS: Heparin 5,000 Unit/mL Inj SUBQ SCH ×3 (10:28→23:45)
[2017-04-10] MEDS: Polyethylene Glycol (PEG) 17 Gm Powder PO SCH (12:04)
--- NOTE | 2017-04-10 14:30 | NUR ---
Discharge Pt discharged at 1420 to private vehicle with family, was wanting to leave all day and wanted IV and telemetry off before discharge was finalized. IV removed intact. Pt upset and wasn't sure why he was even here. Pt given new rx's, care notes and discharge instructions. Pt understands he needs to f/u with PCP in 1-2 days. No pain, no N/V or BM's during this shift. VSS, KAUFMAN, A&O x 3. All questions answered and has all belongings. Addendum: 04/10/17 at 1433 by JEIMY MARTINEZ RN Note entered on wrong pt.
[2017-04-10 14:41] VITALS: BP 143/87; PULSE 94; RESP 18; O2SAT 94
[2017-04-10] MEDS ORDERED: 0.9% Sodium Chloride 100 ML ONE (15:28)
--- NOTE | 2017-04-10 16:16 | NUR ---
Social Work- Initial Assessment Data: See Initial Assessment. Pt is a 71 year old female admitted 04/09/17 for small bowel mass per H&P. Surgery is following pt. Pt is POD 1. Pt's insurance is [employer]. Pt's PCP is Iam Hammer MD. Pt's NOK/DPOA is Ruben Kumar, , . Ruben is pt's designated discharge planning contact. SW met with pt at bedside with regarding discharge plan, SW role explained. Pt alert and oriented x3. Pt resides in [place] with her spouse where she is independent at baseline. Pt uses no DME and drives. Pt has no HH or SNF history. Pt has LTC insurance through [employer]. Pt has no VA benefits. Pt to discharge home with to transport via POV. No discharge needs identified. SW will continue to follow if needs arise. Assessment: Pt who is independent at baseline. Plan: Pt to discharge home with to transport via POV. No discharge needs identified. SW will continue to follow if needs arise. BRANDEN Rajan Addendum: 04/10/17 at 1620 by LAURA RIVERA SS Amended: Links added.
--- NOTE | 2017-04-10 19:17 | NUR ---
Activity Pt pain well controlled 4-5/ with medications. Had increasing abdominal pain this afternoon and encouraged pt to rest after taking medication. Up and walked 12 laps in hallways with family. VSS, KAUFMAN, A&O x 3. Not passing gas yet, but has bowel tones. Dressings are all CDI. Pt voiding fine and up to BR independently. Bed in low, call light in reach, q1 hour monitoring.
[2017-04-10 19:48] VITALS: BP 115/71; PULSE 85; RESP 16; O2SAT 96
[2017-04-11] MEDS: Acetaminophen IV 1,000 MG in IV Premix 1 EACH IV SCH ×2 (06:16→08:30)
--- NOTE | 2017-04-11 06:36 | NUR ---
Pain Pain well managed with prn oxycodone and scheduled IV Tylenol. Pt anticipating D/C today. Hourly rounding ongoing.
[2017-04-11 06:43] VITALS: BP 105/68; PULSE 72; RESP 18; O2SAT 97
--- NOTE | 2017-04-11 08:07 | PROG NOTE ---
[address] [address] PROGRESS NOTE PATIENT: MARLENY HAILE : 1945 MR#: [id number] ADMIT: 04/09/2017 JOB ID: [id number] DATE: 04/11/2017 SUBJECTIVE: The patient is seen in followup. She is doing well. Her pain is significantly better. She slept well overnight. She has no nausea. She feels some rumbling in the abdomen but has not passed flatus or stool yet. OBJECTIVE: Temperature 36.8, pulse 72, blood pressure 105/68, saturation 97% on room air. General: She is sitting up in a chair in no acute distress. Chest is clear. Heart: Regular rate and rhythm. No murmurs. Abdomen is soft, mildly distended. Her incisions are clean with no erythema. ASSESSMENT AND PLAN: A 71-year-old woman, postoperative day two, status post laparoscopic small bowel resection for a and 5 cm ileal mass. She is doing well clinically. We are awaiting return of bowel function. Anticipate possible discharge either later today or tomorrow depending on how she progresses.
[2017-04-11] MEDS: Heparin 5,000 Unit/mL Inj SUBQ SCH ×2 (09:21→16:30)
[2017-04-11] MEDS: Dextrose 5% Lactated Ringer's 1,000 ML IV SCH (11:21)
[2017-04-11] MEDS: Polyethylene Glycol (PEG) 17 Gm Powder PO SCH (12:46)
[2017-04-11 16:11] VITALS: BP 131/75; PULSE 75; RESP 18; O2SAT 98
--- NOTE | 2017-04-11 16:34 | NUR ---
PAIN/BOWEL TONES P- Patient c/o abdominal pain 5/10 at times. Patient bowel tones hypoactive but present, she states "I have passed some gas". Abdomen tender to touch but not distended, surgery sites c/d/i. I-Tylenol and Oxycodone given and pain managed fairly well, patient walking in halls. E- Awaiting surgeon to make d/c decision.
--- NOTE | 2017-04-11 17:36 | PCM.DISURG ---
Surgical Discharge Instruction Date of Service Apr 11, 2017 Dates of Hospitalization Date of Hospital Admission Apr 09, 2017 at 10:58 Providers Admitting Physician: Chente Gottlieb MD Primary Care Physician: Iam Hammer MD Attending Physician: Chente Gottlieb MD Discharge Diagnosis Discharge Diagnosis ileal mass Post Operative diagnosis Same Diet Discharge Diet: No restrictions Activity Discharge Activity-General: Activity as pain allows, No lifting >15 pounds for 2 weeks Dressing and Incisional Care Dressing Care: Allow Steri Stripes to fall off Hygiene: May shower Follow Up Plan Follow Up Plan with Dr. Gottlieb in 7-10 days Call your provider for: Fever (over 101.5F), Increasing abdominal pain, Vomiting, Discharge @ incision, pus discharge Chente Gottlieb MD Apr 11, 2017 17:36
[2017-04-11] MEDS ORDERED: POLY17PO6 PO (17:37)
[2017-04-11] MEDS ORDERED: OXYC5TAB72 PO (17:37)
--- NOTE | 2017-04-11 18:29 | NUR ---
DISCHARGE Patient discharged at 1830, left with who will drive her home. Patient denies pain, shortness of breath, and nausea. Medications reviewed, new Rx given, follow up instructions and care notes provided and patient verbalized understanding. IV catheter removed intact and patient has all her belongings.
--- NOTE | 2017-04-12 16:13 | PCM.DC.SUR ---
Discharge Summary Date of Service: Apr 12, 2017 Date of Hospital Admission: Apr 09, 2017 at 10:58 Date of Operation(s): Apr 09, 2017 Date of Discharge: Apr 11, 2017 Diagnosis at Time of Discharge ileal mass Problems: (1) Small bowel mass Status: Acute ICD Code: K63.89 Operation Laparoscopic small bowel resection with anastomosis Brief History and Physical: 71-year-old woman who recently underwent a workup and ultimate operation by Dr. Flores for a presumed adnexal mass. She had MRI of the pelvis as well as transvaginal ultrasound, both of which suggested a 4.3 cm heterogeneous solid mass, presumptively arising from the right adnexa. She underwent a laparoscopic hysterectomy, and she has some small fibroids, but actually the mass was arising from the bowel. She recovered from that operation. She had colonoscopy, which did not show any endoluminal lesion. After discussion of risks and benefits, she agreed to proceed with laparoscopic all resection. She was treated with the preoperative [facility] nutritional program. She underwent a mechanical and antibiotic bowel preparation. Temperature 36.8, pulse 72, blood pressure 105/68, saturation 97% on room air. General: She is sitting up in a chair in no acute distress. Chest is clear. Heart: Regular rate and rhythm. No murmurs. Abdomen is soft, mildly distended. Her incisions are clean with no erythema. Consultants: None Hospital Course: Patient was taken to operating room for a laparoscopic small bowel resection with anastomosis. Please refer to the operative notes for details of the operation. She tolerated the procedure well and was transported to her hospital room where she remained for the balance of her hospital stay. Her hospital stay was uneventful. On postoperative day number 2, she was found to have excellent pain control, was tolerating a diet and had bowel function. She was then discharged to her home in good condition. Pathology: Pending Disposition: home in good condition. Follow-up Plan: Discharge Diet: No restrictions Discharge Activity-General: Activity as pain allows, No lifting >15 pounds for 2 weeks Dressing Care: Allow Steri Stripes to fall off Hygiene: May shower Follow Up Plan with Dr. Gottlieb in 7-10 days Call your provider for: Fever (over 101.5F), Increasing abdominal pain, Vomiting, Discharge @ incision, pus discharge Calcium Citrate/Vitamin D2 (Kumar-Citrate Plus Vitamin D Tab) 1 Each Tablet 1 EACH PO DAILY (Reported) Polyethylene Glycol 3350 (Miralax) 17 Gm Powd.pack 17 GM PO DAILY Raloxifene (Evista) 60 Mg Tablet 60 MG PO DAILY (Reported) diphenhydrAMINE HCl (Benadryl) 25 Mg Capsule 25 MG PO Q4 PRN PRN allergy sx ( Reported) oxyCODONE (oxyCODONE) 5 Mg Tablet 5-10 MG PO Q4H PRN PRN For Moderate Pain copies to: Iam Hammer MD, Samuel L PA-C Apr 12, 2017 16:13
--- NOTE | 2017-04-15 12:03 | PATH ---
SURGICAL PATHOLOGY Attending Physician:Irene Prieto CASE STATUS: Signed Out PATIENT NAME: MARLENY HAILE PID: [id number] : 1945 DATE COLLECTED:04/09/2017 21:23 SPECIMEN: Small Intestine, Non-Tumor Resection CLINICAL HISTORY: SMALL BOWEL MASS 1). 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 PROCEDURE: RESECTION TUMOR SITE: JEJUNUM/ILEUM TUMOR SIZE: GREATEST DIMENSION: 4.8 CM ADDITIONAL DIMENSIONS: 4.1 X 3.6 CM TUMOR FOCALITY: UNIFOCAL GIST SUBTYPE: MIXED SPINDLE AND EPITHELIOID MITOTIC RATE: LESS THAN 1 PER 50 HPF NECROSIS: NOT IDENTIFIED HISTOLOGIC GRADE: G1: LOW GRADE; MITOTIC RATE LESS THAN 5/50 HPF RISK ASSESSMENT: LOW RISK MARGINS: NEGATIVE FOR GIST DISTANCE OF TUMOR FROM CLOSEST MARGIN: 4 MM PATHOLOGIC STAGING (pTNM): PRIMARY TUMOR: pT2. REGIONAL LYMPH NODES (pN): NOT APPLICABLE ICD C49.A3 GROSS DESCRIPTION: The specimen is received in formalin, labeled with the patient's name, sublabeled as small bowel lesion, and consists of an unoriented segment of small bowel (length-3.3 cm, resection margin #1 diameter-2.4 cm, resection margin #2 diameter-2.0 cm) the attached adipose tissue (1.5 cm in depth). The mucosa is hayes, smooth, and shiny with normal folds. The serosa is hayes-pink smooth and shiny and contains one a hayes-yellow bone one solid rubbery and well-circumscribed and nodular mass (4.8 x 4.1 x 3.6 cm). The mass is 0.4 cm from resection margin #1 and 1.8 cm from resection margin #2. The mass does not appear to extend through the wall into the lumen. The mass cut surface is hayes-yellow smooth, homogenous and partially friable and hemorrhagic. Ink code: black-resection margin. Section code: (A, B) resection margin #1 with mass, longitudinally sectioned, automotive sales representative; (C) resection margin #2, longitudinally sectioned, automotive sales representative; (D-H) mass, automotive sales representative. 04/10/17 JM MICRO DESCRIPTION: Sections of the mass show a circumscribed mass composed of spindle and epithelioid cells arranged in interlacing bundles or a diffuse pattern. No diagnostic differentiating features are identified. Immunohistochemical stains are performed to further evaluate the nature of the tumor. The tumor cells are stained with the following antibodies with the following results, using block 1G. Positive and negative controls stain appropriately. AntibodyResult BOBBY keratin (BOBBY)Negative S100 protein (4C4.9)Negative DOG1 (SP31)Strongly positive CD117 (c-kit, polyclonal)Positive Smooth muscle actin (1A4)Positive Myosin (SMMS-1)Patchy positive CD31 (MORAIMA/70A)Negative Interpretation: This staining pattern supports a diagnosis of gastrointestinal stromal tumor. See diagnostic field for additional details. This test was developed and its performance characteristics determined by [facility]. It has not been cleared or approved by the [place]. [place]. Food and Drug Administration. The FDA has determined that such clearance or approval is not necessary. This test is used for clinical purposes. It should not be regarded as investigational or for research. ICD-9 CODES: CPT CODES: 1: 28627, 97692, 34497, 71202, 01954, 23159 Electronically Signed Out Gladys Daniel MD [facility] Pathology [facility] [address], [place] [address] Technical component performed at [facility], [address], [place], [address]
== END 2017-04-11 18:30 | disposition home or self-care (01) | DRG 331 ==
LOC: SAS 05:50 → OSC 10:58
PROVIDERS: ADMIT Student in an Organized Health Care Education/Training Program; ATTEND Student in an Organized Health Care Education/Training Program
PROC: 0DTB4ZZ Resection of Ileum, Percutaneous Endoscopic Approach (ICD-10-PCS; principal; 2017-04-09 07:30)
DX: K63.89 Other specified diseases of intestine (principal)